=== PATIENT | female | born 1970 | race African-American/Black ===

== ENCOUNTER 2017-02-18 14:51 | Emergency (ER) | payer MEDICAID ==
[~2017-02-18] VITALS: Ht 167.6 cm; Wt 118.0 kg
[~2017-02-18 14:51] MED LIST: AMLO10TA80 PO; ASPI-1159 PO; ATEN-42 PO; IBUP-1509 PO; LOSA25TA12 PO; METO-293 PO; WOMEN'S ONE A DAY
[2017-02-18] MEDS ORDERED: LOSA50TA20 PO (15:06)
[2017-02-18] MEDS ORDERED: METF500T4 PO (15:06)
[2017-02-18 19:34] LABS: BASOPHILS % 0.8 % (0.0-2.0); EOSINOPHILS % 3.6 % (0.0-5.0); HEMATOCRIT. 32.2 % (36.0-48.0); HEMOGLOBIN. 10.1 g/dL (12.0-16.0); LYMPHOCYTES % 29.9 % (20.0-50.0); MEAN CORPUSCULAR HEMOGLOBIN 21.7 pg (28.0-32.0); MEAN CORPUSCULAR VOLUME 69.5 fL (81.0-99.0); MEAN PLATELET VOLUME 8.3 fl (7.4-10.4); MONOCYTES % 7.4 % (2.0-8.0); NEUTROPHILS % 58.3 % (40.0-76.0); PLATELET 302 x1000/uL (130-400); RED BLOOD CELL COUNT 4.63 mill/uL (4.2-5.4)
[2017-02-18 19:41] LABS: CHLORIDE 106 mEq/L (98-107)
[2017-02-18 19:44] LABS: CARBON DIOXIDE 25 mEq/L (21-32)
[2017-02-18 19:53] LABS: PLATELET ESTIMATE NORMAL
[2017-02-18 20:10] VITALS: BP 142/99
== END 2017-02-18 22:15 | disposition home or self-care (01) ==
LOC: ER 16:40
DX: I10 Essential (primary) hypertension (principal); E11.9 Type 2 diabetes mellitus without complications; Z79.82 Long term (current) use of aspirin; Z88.0 Allergy status to penicillin; Z88.2 Allergy status to sulfonamides; Z91.018 Allergy to other foods; Z90.49 Acquired absence of other specified parts of digestive tract; Z90.710 Acquired absence of both cervix and uterus
CPT/HCPCS: 36415; 80053; 81025; 85025; 93005; 99285

== ENCOUNTER 2017-04-22 13:12 | Inpatient (IN) | payer MEDICAID ==
[~2017-04-22] VITALS: Ht 167.6 cm; Wt 120.2 kg
[~2017-04-22 13:12] MED LIST changes: -IBUP-1509 PO; +IBUP-2028 PO; +LOSA50TA20 PO; +METF500T4 PO
[2017-04-22] MEDS ORDERED: SODIUM CHLORIDE 0.9% 1,000 ML IV ONE (14:01)
[2017-04-22] MEDS ORDERED: CLONIDINE 0.2MG TABLET PO ONE (14:15)
[2017-04-22 14:35] LABS: BASOPHILS % 0.4 % (0.0-2.0); EOSINOPHILS % 1.6 % (0.0-5.0); HEMOGLOBIN. 11.1 g/dL (12.0-16.0); LYMPHOCYTES % 22.6 % (20.0-50.0); MEAN CORPUSCULAR HEMOGLOBIN 21.2 pg (28.0-32.0); MEAN CORPUSCULAR VOLUME 68.5 fL (81.0-99.0); MEAN PLATELET VOLUME 8.7 fl (7.4-10.4); NEUTROPHILS % 68.4 % (40.0-76.0); PLATELET 306 x1000/uL (130-400); PROTHROMBIN TIME 10.3 sec (9.4-11.6); RED BLOOD CELL COUNT 5.25 mill/uL (4.2-5.4); RED CELL DISTRIBUTION WIDTH 16.2 % (11.6-14.6)
[2017-04-22 14:48] LABS: CARBON DIOXIDE 26 mEq/L (21-32); CHLORIDE 103 mEq/L (98-107); TROPONIN I < 0.02 ng/mL (0.00-0.04)
[2017-04-22 15:09] LABS: HCG SCREEN NEGATIVE
[2017-04-22 15:25] LABS: PLATELET ESTIMATE NORMAL
[2017-04-22 17:00] LABS: CLARITY URINE CLEAR (CLEAR); COLOR URINE YELLOW (YELLOW); GLUCOSE URINE NEGATIVE (NEGATIVE); KETONES URINE NEGATIVE (NEGATIVE); LEUKOCYTE ESTERASE URINE TRACE (NEGATIVE); NITRITE URINE NEGATIVE (NEGATIVE); OCCULT BLOOD URINE NEGATIVE (NEGATIVE); PROTEIN URINE TRACE (NEGATIVE); SPECIFIC GRAVITY URINE 1.022 (1.005-1.030); UROBILINOGEN URINE 0.2 E.U./dL (0.2-1.0)
[2017-04-22] MEDS ORDERED: AMLODIPINE 5MG TABLET PO ONE (20:00)
[2017-04-22] MEDS ORDERED: MORPHINE SULFATE 4 MG/ML CPJ (NOT FOR IM USE) IV NR (20:00)
[2017-04-22] MEDS ORDERED: MORPHINE SULFATE 2 MG/ML CPJ (NOT FOR IM USE) IV ONE (20:00)
[2017-04-22] MEDS ORDERED: LEVOFLOXACIN 500MG PREMIX 100 ML IV ONE (21:00)
[2017-04-22] MEDS ORDERED: HYDRALAZINE 20MG/ML VIAL IV ONE (21:00)
[2017-04-22 22:00] VITALS: BP 167/101
[2017-04-22 22:30] VITALS: BP 167/101
[2017-04-22] MEDS ORDERED: IPRATROPIUM/ALBUTEROL 0.5-3(2.5)MG/3ML NEB INH PRN (23:00)
[2017-04-22] MEDS ORDERED: NA PHOS,M-B/NA PHOS,DI-BA ENEMA 118ML PR PRN (23:00)
[2017-04-22] MEDS ORDERED: DOCUSATE SODIUM 100MG CAPSULE PO PRN (23:00)
[2017-04-22] MEDS ORDERED: ACETAMINOPHEN 325MG TABLET PO PRN (23:00)
[2017-04-22] MEDS ORDERED: KETOROLAC 30MG/ML VIAL IV PRN (23:00)
[2017-04-22] MEDS ORDERED: CLONIDINE 0.1MG TABLET PO PRN (23:00)
[2017-04-22] MEDS ORDERED: LORAZEPAM 2MG/ML CPJ IV PRN (23:00)
[2017-04-22] MEDS ORDERED: NITROGLYCERIN 0.4MG TABLET SL SL PRN (23:00)
[2017-04-22] MEDS ORDERED: ENOXAPARIN 40MG/0.4ML SYR SUBCUT SCH (23:00)
[2017-04-22] MEDS ORDERED: AMLODIPINE 10MG TABLET PO SCH (23:00)
[2017-04-22] MEDS ORDERED: MAGNESIUM/ALUMINUM HYDROXIDE/SIMETHICONE 30ML UDC PO PRN (23:00)
[2017-04-22] MEDS ORDERED: GUAIFENESIN 200MG/10ML SUGAR FREE UDC PO PRN (23:00)
[2017-04-22] MEDS ORDERED: ZOLPIDEM TARTRATE 5MG TABLET PO PRN (23:00)
[2017-04-22] MEDS ORDERED: DIPHENHYDRAMINE 50MG/ML VIAL IV PRN (23:00)
[2017-04-22] MEDS ORDERED: ONDANSETRON HCL 4MG/2ML VIAL IV PRN (23:00)
[2017-04-23] VITALS: BP_SYST 113; BP_SYST 117; BP_DIAS 71
[2017-04-23] MEDS ORDERED: ASPI-1159 PO (01:39)
[2017-04-23] MEDS ORDERED: AMLO5TAB4 PO (01:39)
[2017-04-23] MEDS ORDERED: CLON0.1T PO (01:39)
[2017-04-23 04:00] VITALS: BP 144/86
[2017-04-23] MEDS ORDERED: HYDRALAZINE HCL 50MG TABLET PO SCH (06:00)
[2017-04-23 06:20] LABS: CREATINE KINASE 57 IU/L (26-192); HDL CHOLESTEROL 41 mg/dL (40-59); LDL CHOLESTEROL 95 mg/dL (5-100); TROPONIN I < 0.02 ng/mL (0.00-0.04)
[2017-04-23 08:00] VITALS: BP 148/102
[2017-04-23] MEDS ORDERED: PANTOPRAZOLE SODIUM 40 MG/VIAL IV SCH (09:00)
[2017-04-23] MEDS ORDERED: ENOXAPARIN 40MG/0.4ML SYR SUBCUT SCH (09:00)
[2017-04-23] MEDS ORDERED: LISINOPRIL 20MG TABLET PO SCH (09:00)
[2017-04-23] MEDS ORDERED: FAMOTIDINE 20MG/2ML VIAL IV SCH (09:00)
[2017-04-23] MEDS ORDERED: AMLODIPINE 10MG TABLET PO SCH (09:00)
[2017-04-23] MEDS ORDERED: ZINC SULFATE 220 MG ( 50 ) CAPSULE PO SCH (09:00)
[2017-04-23] MEDS ORDERED: GUAIFENESIN 600MG ER TABLET PO SCH (09:00)
[2017-04-23] MEDS ORDERED: ASCORBIC ACID 500 MG TABLET PO SCH (09:00)
[2017-04-23 09:07] LABS: *AMPHETAMINES SCREEN URINE NEGATIVE (NEGATIVE); *BARBITURATES SCREEN URINE NEGATIVE (NEGATIVE); *BENZODIAZEPINES SCREEN URINE NEGATIVE (NEGATIVE); *COCAINE SCREEN URINE NEGATIVE (NEGATIVE); CANNABINOID URINE SCREEN NEGATIVE (NEGATIVE); METHADONE URINE SCREEN NEGATIVE (NEGATIVE); OPIATES URINE SCREEN NEGATIVE (NEGATIVE); PHENCYCLIDINE URINE SCREEN NEGATIVE (NEGATIVE)
[2017-04-23 10:21] VITALS: BP 148/90
[2017-04-23 11:52] VITALS: BP 140/98
[2017-05-22] MEDS ORDERED: ATOR10TA PO (11:55)
== END 2017-04-23 14:45 | disposition home or self-care (01) | DRG 199 ==
LOC: ER 13:12 → 8WST 20:57 → EDBEDREQ 21:02 → EDBEDREQSVC 21:02 → EDBEDREQTM 21:02 → ENRESERV 21:08
PROVIDERS: ADMIT Internal Medicine; ATTEND Internal Medicine
DX: I10 Essential (primary) hypertension (principal); E11.9 Type 2 diabetes mellitus without complications; G47.00 Insomnia, unspecified; Z82.49 Family history of ischemic heart disease and other diseases of the circulatory system; Z90.49 Acquired absence of other specified parts of digestive tract; Z90.710 Acquired absence of both cervix and uterus; Z88.6 Allergy status to analgesic agent; Z88.0 Allergy status to penicillin; Z88.2 Allergy status to sulfonamides
CPT/HCPCS: 36415; 70450; 71010; 80053; 80061; 80305; 81001; 82550; 82553; 83036; 83690; 84484; 84703; 85025; 85610; 93005; 96361; 96374; 96375; 99285; J0360; J1650; J1885; J1956; J2270; J2405; J3490; J7030

== ENCOUNTER 2017-04-29 10:24 | Emergency (ER) | payer MEDICAID ==
[~2017-04-29] VITALS: Ht 167.6 cm; Wt 114.0 kg
[~2017-04-29 10:24] MED LIST changes: -AMLO10TA80 PO; +AMLO5TAB4 PO; -ATEN-42 PO; +CLON0.1T PO; -IBUP-2028 PO; -LOSA25TA12 PO; -LOSA50TA20 PO; -METF500T4 PO; -METO-293 PO; -WOMEN'S ONE A DAY
[2017-04-29 11:55] LABS: BASOPHILS % 0.7 % (0.0-2.0); EOSINOPHILS % 2.1 % (0.0-5.0); HEMOGLOBIN. 10.3 g/dL (12.0-16.0); LYMPHOCYTES % 22.5 % (20.0-50.0); MEAN CORPUSCULAR HEMOGLOBIN 21.7 pg (28.0-32.0); MEAN CORPUSCULAR VOLUME 69.3 fL (81.0-99.0); MEAN PLATELET VOLUME 8.3 fl (7.4-10.4); MONOCYTES % 7.9 % (2.0-8.0); NEUTROPHILS % 66.8 % (40.0-76.0); PLATELET 285 x1000/uL (130-400); RED BLOOD CELL COUNT 4.76 mill/uL (4.2-5.4); RED CELL DISTRIBUTION WIDTH 15.7 % (11.6-14.6)
[2017-04-29] MEDS: ONDANSETRON HCL 4MG/2ML VIAL IV STA (11:57)
[2017-04-29] MEDS: MORPHINE SULFATE 4 MG/ML CPJ (NOT FOR IM USE) IV STA (11:57)
[2017-04-29 12:02] LABS: CLARITY URINE CLEAR (CLEAR); COLOR URINE YELLOW (YELLOW); GLUCOSE URINE NEGATIVE (NEGATIVE); KETONES URINE TRACE (NEGATIVE); LEUKOCYTE ESTERASE URINE 2+ (NEGATIVE); NITRITE URINE NEGATIVE (NEGATIVE); OCCULT BLOOD URINE NEGATIVE (NEGATIVE); PROTEIN URINE TRACE (NEGATIVE); SPECIFIC GRAVITY URINE 1.026 (1.005-1.030); UROBILINOGEN URINE 0.2 E.U./dL (0.2-1.0)
[2017-04-29 12:04] LABS: PROTHROMBIN TIME 10.7 sec (9.4-11.6)
[2017-04-29 12:10] LABS: CARBON DIOXIDE 27 mEq/L (21-32); CHLORIDE 108 mEq/L (98-107); CREATINE KINASE 54 IU/L (26-192); ETHANOL BLOOD < 10 mg/dL; TROPONIN I < 0.02 ng/mL (0.00-0.04)
[2017-04-29 12:14] LABS: PLATELET ESTIMATE NORMAL
[2017-04-29 12:18] LABS: *AMPHETAMINES SCREEN URINE NEGATIVE (NEGATIVE); *BARBITURATES SCREEN URINE NEGATIVE (NEGATIVE); *BENZODIAZEPINES SCREEN URINE NEGATIVE (NEGATIVE); *COCAINE SCREEN URINE NEGATIVE (NEGATIVE)
[2017-04-29 12:19] LABS: CANNABINOID URINE SCREEN NEGATIVE (NEGATIVE); METHADONE URINE SCREEN NEGATIVE (NEGATIVE); PHENCYCLIDINE URINE SCREEN NEGATIVE (NEGATIVE)
[2017-04-29 12:21] LABS: OPIATES URINE SCREEN PRESUMTIVE POSITIVE (NEGATIVE)
[2017-04-29 15:12] VITALS: BP 127/71
[2017-05-22] MEDS ORDERED: ATOR10TA PO (11:55)
== END 2017-04-29 15:15 | disposition home or self-care (01) ==
LOC: ER 10:43 → CANBEDREQ 04-30 01:39
DX: I10 Essential (primary) hypertension (principal); N39.0 Urinary tract infection, site not specified; R60.0 Localized edema; D64.9 Anemia, unspecified; R07.9 Chest pain, unspecified; E11.9 Type 2 diabetes mellitus without complications; Z88.0 Allergy status to penicillin; Z88.2 Allergy status to sulfonamides; Z79.82 Long term (current) use of aspirin
CPT/HCPCS: 36415; 70450; 71010; 80053; 80305; 81001; 82550; 83880; 84443; 84484; 85025; 85610; 93005; 96374; 96375; 99285; G0482; J2270; J2405; Z7610

== ENCOUNTER 2017-05-02 10:45 | Inpatient (IN) | payer MEDICAID ==
[~2017-05-02] VITALS: Ht 167.6 cm; Wt 114.3 kg
[2017-05-02] MEDS ORDERED: LISI-604 PO (10:52)
[2017-05-02] MEDS ORDERED: ATEN-42 PO (10:53)
[2017-05-02] MEDS ORDERED: VALS160T2 PO (10:53)
[2017-05-02] MEDS ORDERED: FERR-54 PO (10:53)
[2017-05-02] MEDS ORDERED: NITR100C PO (10:54)
[2017-05-02] MEDS ORDERED: LABETALOL HCL 20MG/4ML CARPUJECT IV ONE (11:15)
[2017-05-02] MEDS ORDERED: MORPHINE SULFATE 4 MG/ML CPJ (NOT FOR IM USE) IV ONE (11:15)
[2017-05-02] MEDS ORDERED: ONDANSETRON HCL 4MG/2ML VIAL IV ONE (11:15)
[2017-05-02 11:32] LABS: BASOPHILS % 0.7 % (0.0-2.0); EOSINOPHILS % 2.7 % (0.0-5.0); HEMATOCRIT. 35.5 % (36.0-48.0); HEMOGLOBIN. 11.1 g/dL (12.0-16.0); LYMPHOCYTES % 22.1 % (20.0-50.0); MEAN CORPUSCULAR HEMOGLOBIN 21.7 pg (28.0-32.0); MEAN CORPUSCULAR VOLUME 69.6 fL (81.0-99.0); MEAN PLATELET VOLUME 8.5 fl (7.4-10.4); MONOCYTES % 6.3 % (2.0-8.0); NEUTROPHILS % 68.2 % (40.0-76.0); PLATELET 309 x1000/uL (130-400); RED CELL DISTRIBUTION WIDTH 15.8 % (11.6-14.6)
[2017-05-02 11:41] LABS: PARTIAL THROMBOPLASTIN TIME 27.7 sec (23.4-31.0); PROTHROMBIN TIME 10.5 sec (9.4-11.6)
[2017-05-02 11:50] LABS: CARBON DIOXIDE 25 mEq/L (21-32); CHLORIDE 107 mEq/L (98-107); PLATELET ESTIMATE NORMAL; TROPONIN I < 0.02 ng/mL (0.00-0.04)
[2017-05-02] MEDS ORDERED: LABETALOL 5MG/ML SYR 20 MG/4 ML SYRINGE IV ONE (12:08)
[2017-05-02 16:00] VITALS: BP 154/98
[2017-05-02] MEDS ORDERED: ACETAMINOPHEN 325MG TABLET PO PRN (16:00)
[2017-05-02] MEDS ORDERED: IPRATROPIUM/ALBUTEROL 0.5-3(2.5)MG/3ML NEB INH PRN (16:00)
[2017-05-02] MEDS ORDERED: LORAZEPAM 2MG/ML CPJ IV PRN (16:00)
[2017-05-02] MEDS ORDERED: NA PHOS,M-B/NA PHOS,DI-BA ENEMA 118ML PR PRN (16:00)
[2017-05-02] MEDS ORDERED: NITROGLYCERIN 0.4MG TABLET SL SL PRN (16:00)
[2017-05-02] MEDS ORDERED: GUAIFENESIN 200MG/10ML SUGAR FREE UDC PO PRN (16:00)
[2017-05-02] MEDS ORDERED: ZOLPIDEM TARTRATE 5MG TABLET PO PRN (16:00)
[2017-05-02] MEDS ORDERED: MAGNESIUM/ALUMINUM HYDROXIDE/SIMETHICONE 30ML UDC PO PRN (16:00)
[2017-05-02] MEDS ORDERED: DOCUSATE SODIUM 100MG CAPSULE PO PRN (16:00)
[2017-05-02] MEDS ORDERED: ONDANSETRON HCL 4MG/2ML VIAL IV PRN (16:00)
[2017-05-02 16:12] VITALS: BP 154/98
[2017-05-02] MEDS ORDERED: POTASSIUM CHLORIDE 20MEQ/PACKET PO NR (16:18)
[2017-05-02] MEDS: ENOXAPARIN 30MG/0.3ML SYR SUBCUT SCH (16:41)
[2017-05-02] MEDS: AMLODIPINE 10MG TABLET PO SCH (16:41)
[2017-05-02] MEDS: KETOROLAC 30MG/ML VIAL IV PRN (17:59)
[2017-05-02 18:00] LABS: *AMPHETAMINES SCREEN URINE NEGATIVE (NEGATIVE); *BARBITURATES SCREEN URINE NEGATIVE (NEGATIVE); *BENZODIAZEPINES SCREEN URINE NEGATIVE (NEGATIVE); *COCAINE SCREEN URINE NEGATIVE (NEGATIVE); CANNABINOID URINE SCREEN NEGATIVE (NEGATIVE); METHADONE URINE SCREEN NEGATIVE (NEGATIVE); OPIATES URINE SCREEN PRESUMTIVE POSITIVE (NEGATIVE); PHENCYCLIDINE URINE SCREEN NEGATIVE (NEGATIVE)
[2017-05-02 20:00] VITALS: BP 148/84
[2017-05-02] MEDS: LISINOPRIL 20MG TABLET PO SCH (21:41)
[2017-05-02] MEDS: METOPROLOL TARTRATE 25MG TABLET PO SCH (21:42)
[2017-05-02 22:49] LABS: CREATINE KINASE 51 IU/L (26-192); CREATINE KINASE MB FRACTION < 0.5 ng/mL (0.5-3.6); TROPONIN I < 0.02 ng/mL (0.00-0.04)
[2017-05-03] VITALS: BP 129/77
[2017-05-03] MEDS: KETOROLAC 30MG/ML VIAL IV PRN ×2 (00:40→07:44)
[2017-05-03 04:00] VITALS: BP 183/105
[2017-05-03] MEDS: ENOXAPARIN 30MG/0.3ML SYR SUBCUT SCH (06:03)
[2017-05-03 06:44] LABS: TROPONIN I < 0.02 ng/mL (0.00-0.04)
[2017-05-03 06:51] LABS: CREATINE KINASE 45 IU/L (26-192)
[2017-05-03 07:02] LABS: CREATINE KINASE MB FRACTION 0.8 ng/mL (0.5-3.6)
[2017-05-03 07:53] VITALS: BP 140/86
[2017-05-03] MEDS: METOPROLOL TARTRATE 25MG TABLET PO SCH (08:42)
[2017-05-03] MEDS: LISINOPRIL 20MG TABLET PO SCH (08:43)
[2017-05-03] MEDS: AMLODIPINE 10MG TABLET PO SCH (08:43)
[2017-05-03] MEDS ORDERED: ASPIRIN 325MG EC TABLET PO SCH (09:00)
[2017-05-03 11:10] VITALS: BP 140/86
[2017-05-03 12:00] VITALS: BP 141/91
[2017-05-22] MEDS ORDERED: ATOR10TA PO (11:55)
== END 2017-05-03 13:55 | disposition home or self-care (01) | DRG 199 ==
LOC: ER 10:45 → 8WST 14:04 → ENRESERV 14:37
PROVIDERS: ADMIT Internal Medicine; ATTEND Internal Medicine
DX: I10 Essential (primary) hypertension (principal); E11.9 Type 2 diabetes mellitus without complications; D64.9 Anemia, unspecified; E87.6 Hypokalemia; Z88.0 Allergy status to penicillin; Z79.899 Other long term (current) drug therapy; Z82.49 Family history of ischemic heart disease and other diseases of the circulatory system; Z90.49 Acquired absence of other specified parts of digestive tract; Z90.710 Acquired absence of both cervix and uterus; Z88.2 Allergy status to sulfonamides; Z91.018 Allergy to other foods; Z79.82 Long term (current) use of aspirin
CPT/HCPCS: 36415; 70450; 71010; 80053; 80305; 82550; 82553; 83036; 83690; 84484; 85025; 85610; 85730; 93005; 93970; 96374; 96375; 99285; J1650; J1885; J2270; J2405; J3490

== ENCOUNTER 2017-05-06 22:12 | Emergency (ER) | payer MEDICAID ==
[~2017-05-06] VITALS: Ht 167.6 cm; Wt 114.0 kg
[~2017-05-06 22:12] MED LIST changes: -AMLO5TAB4 PO; -CLON0.1T PO; +FERR-54 PO; +LISI-604 PO; +NITR100C PO; +VALS160T2 PO
[2017-05-06 23:19] LABS: BASOPHILS % 0.8 % (0.0-2.0); HEMATOCRIT. 35.4 % (36.0-48.0); LYMPHOCYTES % 25.1 % (20.0-50.0); MEAN CORPUSCULAR HEMOGLOBIN 21.5 pg (28.0-32.0); MEAN PLATELET VOLUME 8.2 fl (7.4-10.4); MONOCYTES % 7.4 % (2.0-8.0); NEUTROPHILS % 63.7 % (40.0-76.0); PLATELET 305 x1000/uL (130-400); RED BLOOD CELL COUNT 5.13 mill/uL (4.2-5.4); RED CELL DISTRIBUTION WIDTH 15.5 % (11.6-14.6)
[2017-05-06 23:25] LABS: CHLORIDE 104 mEq/L (98-107)
[2017-05-06 23:35] LABS: CARBON DIOXIDE 27 mEq/L (21-32); TROPONIN I < 0.02 ng/mL (0.00-0.04)
[2017-05-07 03:00] VITALS: BP 141/92
[2017-05-22] MEDS ORDERED: ATOR10TA PO (11:55)
== END 2017-05-07 03:20 | disposition home or self-care (01) ==
LOC: ER 22:16
DX: I10 Essential (primary) hypertension (principal); Z88.0 Allergy status to penicillin; Z79.82 Long term (current) use of aspirin
CPT/HCPCS: 36415; 70450; 71010; 80053; 84484; 85025; 93005; 99285; Z7610

== ENCOUNTER 2017-05-19 06:08 | Emergency (ER) | payer MEDICAID ==
[~2017-05-19] VITALS: Ht 167.6 cm; Wt 141.0 kg
[2017-05-19] MEDS ORDERED: SODIUM CHLORIDE 0.9% 1,000 ML IV ONE (07:07)
[2017-05-19] MEDS ORDERED: KETOROLAC 30MG/ML VIAL IV STA (07:07)
[2017-05-19] MEDS ORDERED: ONDANSETRON HCL 4MG/2ML VIAL IV STA (07:07)
[2017-05-19] MEDS ORDERED: MECLIZINE 25MG TABLET PO ONE (07:15)
[2017-05-19 07:26] LABS: BASOPHILS % 0.9 % (0.0-2.0); EOSINOPHILS % 1.9 % (0.0-5.0); HEMATOCRIT. 35.4 % (36.0-48.0); HEMOGLOBIN. 11.1 g/dL (12.0-16.0); LYMPHOCYTES % 22.7 % (20.0-50.0); MEAN CORPUSCULAR HEMOGLOBIN 21.7 pg (28.0-32.0); MEAN CORPUSCULAR VOLUME 69.1 fL (81.0-99.0); MEAN PLATELET VOLUME 8.2 fl (7.4-10.4); MONOCYTES % 5.5 % (2.0-8.0); PLATELET 304 x1000/uL (130-400); RED BLOOD CELL COUNT 5.12 mill/uL (4.2-5.4); RED CELL DISTRIBUTION WIDTH 15.5 % (11.6-14.6)
[2017-05-19 07:30] LABS: PROTHROMBIN TIME 10.7 sec (9.4-11.6)
[2017-05-19 07:36] LABS: CARBON DIOXIDE 27 mEq/L (21-32); CHLORIDE 105 mEq/L (98-107)
[2017-05-19 09:04] LABS: PLATELET ESTIMATE NORMAL
[2017-05-19 09:33] VITALS: BP 146/94
[2017-05-22] MEDS ORDERED: ATOR10TA PO (11:55)
== END 2017-05-19 10:33 | disposition home or self-care (01) ==
LOC: ER 06:08
DX: R51 Headache (principal); R10.9 Unspecified abdominal pain; I10 Essential (primary) hypertension; E66.9 Obesity, unspecified; Z88.0 Allergy status to penicillin; Z88.2 Allergy status to sulfonamides; N28.1 Cyst of kidney, acquired; Z79.82 Long term (current) use of aspirin; Z90.49 Acquired absence of other specified parts of digestive tract; Z90.710 Acquired absence of both cervix and uterus
CPT/HCPCS: 36415; 70450; 74176; 80053; 85025; 85610; 93005; 96361; 96374; 96375; 99285; J1885; J2405; Z7610; J7030; J8597

== ENCOUNTER 2017-05-19 18:22 | Emergency (ER) | payer MEDICAID ==
[~2017-05-19] VITALS: Ht 167.6 cm; Wt 114.0 kg
[2017-05-19] MEDS ORDERED: CLONIDINE 0.2MG TABLET PO ONE (22:15)
[2017-05-19 22:30] LABS: CLARITY URINE CLOUDY (CLEAR); COLOR URINE DARK YELLOW (YELLOW); GLUCOSE URINE NEGATIVE (NEGATIVE); KETONES URINE NEGATIVE (NEGATIVE); LEUKOCYTE ESTERASE URINE NEGATIVE (NEGATIVE); NITRITE URINE NEGATIVE (NEGATIVE); OCCULT BLOOD URINE NEGATIVE (NEGATIVE); PROTEIN URINE 1+ (NEGATIVE); UROBILINOGEN URINE 0.2 E.U./dL (0.2-1.0)
[2017-05-19 23:03] LABS: BASOPHILS % 0.7 % (0.0-2.0); EOSINOPHILS % 1.6 % (0.0-5.0); HEMATOCRIT. 33.7 % (36.0-48.0); HEMOGLOBIN. 10.6 g/dL (12.0-16.0); MEAN CORPUSCULAR HEMOGLOBIN 21.8 pg (28.0-32.0); MEAN CORPUSCULAR VOLUME 69.4 fL (81.0-99.0); MEAN PLATELET VOLUME 8.4 fl (7.4-10.4); MONOCYTES % 6.3 % (2.0-8.0); NEUTROPHILS % 65.4 % (40.0-76.0); PLATELET 263 x1000/uL (130-400); RED BLOOD CELL COUNT 4.85 mill/uL (4.2-5.4); RED CELL DISTRIBUTION WIDTH 15.6 % (11.6-14.6)
[2017-05-19 23:06] LABS: CHLORIDE 107 mEq/L (98-107)
[2017-05-19 23:08] LABS: CARBON DIOXIDE 25 mEq/L (21-32)
[2017-05-20] MEDS ORDERED: AMLODIPINE 10MG TABLET PO ONE
[2017-05-20 00:56] VITALS: BP 126/75
[2017-05-21] MEDS ORDERED: METO25TA6 PO (00:49)
[2017-05-21] MEDS ORDERED: SERT25TA74 PO (00:50)
[2017-05-22] MEDS ORDERED: ATOR10TA PO (11:55)
== END 2017-05-20 01:35 | disposition home or self-care (01) ==
LOC: ER 18:51
DX: I16.0 Hypertensive urgency (principal); I10 Essential (primary) hypertension; Z88.0 Allergy status to penicillin; Z79.82 Long term (current) use of aspirin; Z86.73 Personal history of transient ischemic attack (TIA), and cerebral infarction without residual deficits; Z88.2 Allergy status to sulfonamides; Z90.49 Acquired absence of other specified parts of digestive tract; Z90.710 Acquired absence of both cervix and uterus
CPT/HCPCS: 36415; 80048; 81001; 85025; 99284; Z7610

== ENCOUNTER 2017-05-20 15:59 | Inpatient (IN) | payer MEDICAID ==
[~2017-05-20] VITALS: Ht 167.6 cm; Wt 113.9 kg
[2017-05-20 18:53] LABS: BASOPHILS % 0.7 % (0.0-2.0); EOSINOPHILS % 1.3 % (0.0-5.0); HEMATOCRIT. 33.9 % (36.0-48.0); HEMOGLOBIN. 10.7 g/dL (12.0-16.0); LYMPHOCYTES % 23.6 % (20.0-50.0); MEAN CORPUSCULAR HEMOGLOBIN 21.9 pg (28.0-32.0); MEAN CORPUSCULAR VOLUME 69.4 fL (81.0-99.0); MEAN PLATELET VOLUME 8.4 fl (7.4-10.4); MONOCYTES % 6.8 % (2.0-8.0); NEUTROPHILS % 67.6 % (40.0-76.0); PLATELET 267 x1000/uL (130-400); RED BLOOD CELL COUNT 4.88 mill/uL (4.2-5.4); RED CELL DISTRIBUTION WIDTH 15.7 % (11.6-14.6)
[2017-05-20 18:59] LABS: HCG SCREEN NEGATIVE
[2017-05-20] MEDS ORDERED: ACETAMINOPHEN 325MG TABLET PO ONE (19:00)
[2017-05-20 19:01] LABS: CARBON DIOXIDE 25 mEq/L (21-32); CHLORIDE 108 mEq/L (98-107)
[2017-05-20 19:06] LABS: CLARITY URINE CLEAR (CLEAR); COLOR URINE YELLOW (YELLOW); GLUCOSE URINE NEGATIVE (NEGATIVE); KETONES URINE NEGATIVE (NEGATIVE); LEUKOCYTE ESTERASE URINE NEGATIVE (NEGATIVE); NITRITE URINE NEGATIVE (NEGATIVE); OCCULT BLOOD URINE NEGATIVE (NEGATIVE); PROTEIN URINE 1+ (NEGATIVE); SPECIFIC GRAVITY URINE 1.029 (1.005-1.030); UROBILINOGEN URINE 0.2 E.U./dL (0.2-1.0)
[2017-05-20 19:06] LABS: ETHANOL BLOOD < 10 mg/dL
[2017-05-20 19:07] LABS: CREATINE KINASE 59 IU/L (26-192); TROPONIN I < 0.02 ng/mL (0.00-0.04)
[2017-05-20 19:08] LABS: PLATELET ESTIMATE NORMAL
[2017-05-20 19:11] LABS: CARBAMAZEPINE < 0.5 ug/mL (4-12); PHENOBARBITAL < 2.1 ug/mL (15.0-40.0)
[2017-05-20 19:20] LABS: *AMPHETAMINES SCREEN URINE NEGATIVE (NEGATIVE); *BARBITURATES SCREEN URINE NEGATIVE (NEGATIVE); *BENZODIAZEPINES SCREEN URINE NEGATIVE (NEGATIVE); *COCAINE SCREEN URINE NEGATIVE (NEGATIVE); CANNABINOID URINE SCREEN NEGATIVE (NEGATIVE); METHADONE URINE SCREEN NEGATIVE (NEGATIVE); OPIATES URINE SCREEN NEGATIVE (NEGATIVE); PHENCYCLIDINE URINE SCREEN NEGATIVE (NEGATIVE)
[2017-05-20] MEDS ORDERED: IPRATROPIUM/ALBUTEROL 0.5-3(2.5)MG/3ML NEB INH PRN (23:15)
[2017-05-20] MEDS ORDERED: ENOXAPARIN 40MG/0.4ML SYR SUBCUT SCH (23:15)
[2017-05-20] MEDS ORDERED: DOCUSATE SODIUM 100MG CAPSULE PO PRN (23:15)
[2017-05-20] MEDS ORDERED: MAGNESIUM/ALUMINUM HYDROXIDE/SIMETHICONE 30ML UDC PO PRN (23:15)
[2017-05-20] MEDS ORDERED: ONDANSETRON HCL 4MG/2ML VIAL IV PRN (23:15)
[2017-05-20] MEDS ORDERED: ACETAMINOPHEN 325MG TABLET PO PRN (23:15)
[2017-05-20] MEDS ORDERED: CLONIDINE 0.1MG TABLET PO PRN (23:15)
[2017-05-21] VITALS (7 sets, daily range): BP systolic 92–156; BP diastolic 9–104
[2017-05-21] MEDS: HYDROCODONE/ACETAMINOPHEN 5/325MG TABLET PO PRN ×4 (00:03→20:34)
[2017-05-21 00:07] LABS: CARBON DIOXIDE 25 mEq/L (21-32); CHLORIDE 107 mEq/L (98-107)
[2017-05-21] MEDS ORDERED: METO25TA6 PO (00:49)
[2017-05-21] MEDS ORDERED: SERT25TA74 PO (00:50)
[2017-05-21 06:38] LABS: BASOPHILS % 0.4 % (0.0-2.0); EOSINOPHILS % 1.8 % (0.0-5.0); HEMATOCRIT. 31.2 % (36.0-48.0); HEMOGLOBIN. 9.9 g/dL (12.0-16.0); LYMPHOCYTES % 33.2 % (20.0-50.0); MEAN CORPUSCULAR HEMOGLOBIN 22.2 pg (28.0-32.0); MEAN CORPUSCULAR VOLUME 70.4 fL (81.0-99.0); MEAN PLATELET VOLUME 8.4 fl (7.4-10.4); MONOCYTES % 7.4 % (2.0-8.0); NEUTROPHILS % 57.2 % (40.0-76.0); PLATELET 258 x1000/uL (130-400); RED BLOOD CELL COUNT 4.44 mill/uL (4.2-5.4); RED CELL DISTRIBUTION WIDTH 15.5 % (11.6-14.6)
[2017-05-21 06:47] LABS: CREATINE KINASE 51 IU/L (26-192); CREATINE KINASE MB FRACTION < 0.5 ng/mL (0.5-3.6); HDL CHOLESTEROL 42 mg/dL (40-59); LDL CHOLESTEROL 111 mg/dL (5-100); TROPONIN I < 0.02 ng/mL (0.00-0.04)
[2017-05-21] MEDS ORDERED: NITROFURANTOIN MACROCRYSTAL 100 MG PO SCH (09:00)
[2017-05-21] MEDS ORDERED: MEDICATION NOT ON FORMULARY EA (Valsartan (Diovan) 160 MG) PO SCH (09:00)
[2017-05-21] MEDS: METOPROLOL TARTRATE 25MG TABLET PO SCH ×2 (09:17→20:26)
[2017-05-21] MEDS: LOSARTAN POTASSIUM 100 MG TABLET PO SCH (09:17)
[2017-05-21] MEDS: NITROFURANTOIN 100MG M/M CAPSULE PO SCH ×2 (09:18→18:18)
[2017-05-21] MEDS: LISINOPRIL 20MG TABLET PO SCH ×2 (09:18→20:26)
[2017-05-21] MEDS: SERTRALINE HCL 25MG TABLET PO SCH (09:18)
[2017-05-21] MEDS: FERROUS SULFATE 325MG TABLET PO SCH (09:18)
[2017-05-21] MEDS: ASPIRIN 81MG EC TABLET PO SCH (09:18)
[2017-05-21] MEDS: ENOXAPARIN 30MG/0.3ML SYR SUBCUT SCH ×2 (09:19→20:26)
[2017-05-21] MEDS ORDERED: HYDROCODONE/ACETAMINOPHEN 5/325MG TABLET PO PRN (13:15)
[2017-05-21 15:17] LABS: CREATINE KINASE 51 IU/L (26-192); CREATINE KINASE MB FRACTION 0.6 ng/mL (0.5-3.6); TROPONIN I < 0.02 ng/mL (0.00-0.04)
[2017-05-21] MEDS ORDERED: ATORVASTATIN CALCIUM 10MG TABLET PO SCH (21:00)
[2017-05-22] VITALS: BP 131/80
[2017-05-22] MEDS: HYDROCODONE/ACETAMINOPHEN 5/325MG TABLET PO PRN ×2 (01:05→12:36)
[2017-05-22 08:00] VITALS: BP 116/65
[2017-05-22] MEDS: LOSARTAN POTASSIUM 100 MG TABLET PO SCH (09:00)
[2017-05-22] MEDS: METOPROLOL TARTRATE 25MG TABLET PO SCH (09:00)
[2017-05-22] MEDS: LISINOPRIL 20MG TABLET PO SCH (09:00)
[2017-05-22] MEDS: NITROFURANTOIN 100MG M/M CAPSULE PO SCH (09:32)
[2017-05-22] MEDS: FERROUS SULFATE 325MG TABLET PO SCH (09:33)
[2017-05-22] MEDS: SERTRALINE HCL 25MG TABLET PO SCH (09:33)
[2017-05-22] MEDS: ENOXAPARIN 30MG/0.3ML SYR SUBCUT SCH (09:33)
[2017-05-22] MEDS: ASPIRIN 81MG EC TABLET PO SCH (09:33)
[2017-05-22] MEDS ORDERED: ATOR10TA PO (11:55)
[2017-05-22 12:00] VITALS: BP 123/79
[2017-05-22 13:13] LABS: BASOPHILS % 0.4 % (0.0-2.0); EOSINOPHILS % 3.5 % (0.0-5.0); HEMATOCRIT. 32.5 % (36.0-48.0); HEMOGLOBIN. 10.2 g/dL (12.0-16.0); LYMPHOCYTES % 26.7 % (20.0-50.0); MEAN CORPUSCULAR HEMOGLOBIN 21.8 pg (28.0-32.0); MEAN CORPUSCULAR VOLUME 69.4 fL (81.0-99.0); MEAN PLATELET VOLUME 8.6 fl (7.4-10.4); MONOCYTES % 7.3 % (2.0-8.0); NEUTROPHILS % 62.1 % (40.0-76.0); PLATELET 264 x1000/uL (130-400); RED BLOOD CELL COUNT 4.68 mill/uL (4.2-5.4); RED CELL DISTRIBUTION WIDTH 15.7 % (11.6-14.6)
[2017-05-22 13:44] LABS: CARBON DIOXIDE 27 mEq/L (21-32); CHLORIDE 102 mEq/L (98-107)
[2017-05-22 16:00] VITALS: BP 113/58
[2017-05-22 16:02] VITALS: BP 113/58
[2017-05-22] MEDS ORDERED: ENOXAPARIN 40MG/0.4ML SYR SUBCUT SCH (21:00)
== END 2017-05-22 18:26 | disposition home or self-care (01) | DRG 204 ==
LOC: ER 16:54 → 5WST 19:57 → ENRESERV 20:58
PROVIDERS: ADMIT Internal Medicine; ATTEND Internal Medicine
DX: R55 Syncope and collapse (principal); Z68.41 Body mass index [BMI] 40.0-44.9, adult; I10 Essential (primary) hypertension; F32.9 Major depressive disorder, single episode, unspecified; D50.9 Iron deficiency anemia, unspecified; E66.9 Obesity, unspecified; E78.5 Hyperlipidemia, unspecified; G44.209 Tension-type headache, unspecified, not intractable; Z82.49 Family history of ischemic heart disease and other diseases of the circulatory system; Z85.43 Personal history of malignant neoplasm of ovary; Z90.49 Acquired absence of other specified parts of digestive tract; Z90.710 Acquired absence of both cervix and uterus; Z88.0 Allergy status to penicillin; Z88.2 Allergy status to sulfonamides; Z79.82 Long term (current) use of aspirin; Z79.899 Other long term (current) drug therapy
CPT/HCPCS: 36415; 70551; 71010; 80048; 80053; 80061; 80156; 80165; 80184; 80185; 80305; 81001; 82550; 82553; 83735; 84443; 84484; 84703; 85025; 87077; 87086; 87186; 93005; 93306; 93880; 99285; G0482; J1650; J2405

== ENCOUNTER 2017-12-19 06:50 | Emergency (ER) | payer MEDICAID ==
[~2017-12-19] VITALS: Ht 167.6 cm; Wt 114.0 kg
[~2017-12-19 06:50] MED LIST changes: +AMLO10TA80 PO; -ASPI-1159 PO; +ATOR10TA PO; -LISI-604 PO; +LISI40TA4 PO; -NITR100C PO; +SERT-112 PO; -VALS160T2 PO
[2017-12-19] MEDS ORDERED: KETOROLAC 60MG/2ML VIAL IM ONE (08:00)
[2017-12-19 08:12] LABS: BASOPHILS % 0.4 % (0.0-2.0); EOSINOPHILS % 2.3 % (0.0-5.0); HEMATOCRIT. 31.6 % (36.0-48.0); HEMOGLOBIN. 10.1 g/dL (12.0-16.0); LYMPHOCYTES % 28.5 % (20.0-50.0); MEAN CORPUSCULAR HEMOGLOBIN 22.4 pg (28.0-32.0); MEAN CORPUSCULAR VOLUME 70.2 fL (81.0-99.0); MEAN PLATELET VOLUME 7.7 fl (7.4-10.4); MONOCYTES % 9.5 % (2.0-8.0); NEUTROPHILS % 59.3 % (40.0-76.0); PLATELET 260 x1000/uL (130-400); RED BLOOD CELL COUNT 4.49 mill/uL (4.2-5.4); RED CELL DISTRIBUTION WIDTH 15.8 % (11.6-14.6)
[2017-12-19 08:20] LABS: CHLORIDE 106 mEq/L (98-107)
[2017-12-19 08:24] LABS: PROTHROMBIN TIME 10.9 sec (9.4-11.6)
[2017-12-19 08:45] LABS: HCG SCREEN NEGATIVE
[2017-12-19 09:35] VITALS: BP 118/78
== END 2017-12-19 12:25 | disposition home or self-care (01) ==
LOC: ER 06:50
DX: S80.12XA Contusion of left lower leg, initial encounter (principal); S80.11XA Contusion of right lower leg, initial encounter; S40.022A Contusion of left upper arm, initial encounter; J06.9 Acute upper respiratory infection, unspecified; H92.03 Otalgia, bilateral; I10 Essential (primary) hypertension; F41.9 Anxiety disorder, unspecified; Z88.0 Allergy status to penicillin; Z88.2 Allergy status to sulfonamides; X58.XXXA Exposure to other specified factors, initial encounter; Y93.89 Activity, other specified; Y92.89 Other specified places as the place of occurrence of the external cause; Y99.8 Other external cause status
CPT/HCPCS: 36415; 71045; 80053; 84703; 85025; 85610; 85730; 87804; 93970; 96372; 99285; J1885; Z7610

== ENCOUNTER 2018-12-14 08:49 | Emergency (ER) | payer MEDICAID ==
[~2018-12-14] VITALS: Ht 167.6 cm; Wt 114.0 kg
[2018-12-14] MEDS ORDERED: MORPHINE SULFATE 4 MG/ML CPJ (NOT FOR IM USE) IV STA (09:58)
[2018-12-14] MEDS ORDERED: ONDANSETRON HCL 4MG/2ML INJ IV STA (09:58)
[2018-12-14] MEDS ORDERED: ACETAMINOPHEN 325MG TABLET PO STA (09:58)
[2018-12-14] MEDS ORDERED: ASPIRIN 81MG TABLET PO ONE (10:00)
[2018-12-14 10:09] LABS: BASOPHILS % 0.7 % (0.0-2.0); EOSINOPHILS % 2.6 % (0.0-5.0); HEMATOCRIT. 37.5 % (36.0-48.0); HEMOGLOBIN. 11.5 g/dL (12.0-16.0); LYMPHOCYTES % 21.6 % (20.0-50.0); MEAN CORPUSCULAR HEMOGLOBIN 21.7 pg (28.0-32.0); MEAN CORPUSCULAR VOLUME 71.1 fL (81.0-99.0); MEAN PLATELET VOLUME 7.7 fl (7.4-10.4); MONOCYTES % 5.8 % (2.0-8.0); NEUTROPHILS % 69.3 % (40.0-76.0); PLATELET 292 x1000/uL (130-400); RED BLOOD CELL COUNT 5.28 mill/uL (4.2-5.4); RED CELL DISTRIBUTION WIDTH 16.1 % (11.6-14.6)
[2018-12-14 10:15] LABS: CHLORIDE 109 mEq/L (98-107)
[2018-12-14 10:19] LABS: D-DIMER 0.74 mg/L FEU (<0.50)
[2018-12-14 12:49] VITALS: BP 117/73
== END 2018-12-14 12:51 | disposition home or self-care (01) ==
LOC: ER 08:49
DX: R07.89 Other chest pain (principal); D64.9 Anemia, unspecified; F41.9 Anxiety disorder, unspecified; I10 Essential (primary) hypertension; Z90.49 Acquired absence of other specified parts of digestive tract; Z90.710 Acquired absence of both cervix and uterus; Z90.89 Acquired absence of other organs; Z88.0 Allergy status to penicillin; Z88.2 Allergy status to sulfonamides; Z79.899 Other long term (current) drug therapy
CPT/HCPCS: 36415; 71045; 71275; 80053; 84484; 85025; 85379; 85610; 93005; 96374; 96375; 99284; J2270; J2405

== ENCOUNTER 2018-12-23 18:29 | Emergency (ER) | payer MEDICAID ==
[~2018-12-23] VITALS: Ht 167.6 cm; Wt 113.0 kg
[2018-12-23] MEDS ORDERED: ASPIRIN 325MG EC TABLET PO ONE (21:30)
[2018-12-23 21:56] LABS: BASOPHILS % 0.6 % (0.0-2.0); EOSINOPHILS % 2.3 % (0.0-5.0); HEMATOCRIT. 34.8 % (36.0-48.0); HEMOGLOBIN. 11.1 g/dL (12.0-16.0); LYMPHOCYTES % 23.7 % (20.0-50.0); MEAN CORPUSCULAR HEMOGLOBIN 22.7 pg (28.0-32.0); MEAN CORPUSCULAR VOLUME 70.8 fL (81.0-99.0); MEAN PLATELET VOLUME 7.8 fl (7.4-10.4); MONOCYTES % 6.9 % (2.0-8.0); NEUTROPHILS % 66.5 % (40.0-76.0); PLATELET 313 x1000/uL (130-400); RED BLOOD CELL COUNT 4.91 mill/uL (4.2-5.4); RED CELL DISTRIBUTION WIDTH 15.9 % (11.6-14.6)
[2018-12-23 21:59] LABS: CHLORIDE 107 mEq/L (98-107)
[2018-12-23 22:02] LABS: HCG SCREEN NEGATIVE
[2018-12-23 22:03] LABS: PROTHROMBIN TIME 9.9 sec (9.6-11.0)
[2018-12-24 00:02] VITALS: BP 110/62
== END 2018-12-24 00:22 | disposition home or self-care (01) ==
LOC: ER 18:29
DX: R07.89 Other chest pain (principal); D50.9 Iron deficiency anemia, unspecified; I83.893 Varicose veins of bilateral lower extremities with other complications; F41.9 Anxiety disorder, unspecified; R06.02 Shortness of breath; I10 Essential (primary) hypertension; Z90.89 Acquired absence of other organs; Z90.49 Acquired absence of other specified parts of digestive tract; Z90.710 Acquired absence of both cervix and uterus; Z51.11 Encounter for antineoplastic chemotherapy; Z98.818 Other dental procedure status; Z98.890 Other specified postprocedural states; Z85.43 Personal history of malignant neoplasm of ovary; Z79.899 Other long term (current) drug therapy; Z88.2 Allergy status to sulfonamides; Z88.0 Allergy status to penicillin
CPT/HCPCS: 36415; 71045; 78582; 80053; 83880; 84484; 84703; 85025; 85610; 93005; 99284; A9540; A9558; Z7610